=== PATIENT | male | born 1940 | race Caucasian/White ===

== ENCOUNTER → 2017-08-30 | Outpatient (CLI) | payer MEDICARE ==
[~2017-08-30] MED LIST: AMOXICILLIN500 M2; ASPIRIN CHILDRE81 M1; CRESTOR5 MG; INDOCIN50 MG; JANUVIA50 MG; LEVOTHYROXIN0.125 MG; METFORMIN HCL1000 MG; VITAMIN D50000 IU
--- NOTE | 2017-08-30 19:02 | RADIOLOGY REPORT PS360 ---
US ABD(COMPLETE-MULTI ORGANS HISTORY: NONALCOHOLIC FATTY LIVER DISEASE Patient Age: 76 years: Male Ordering Physician: BRANDEN MARTINEZ TECHNIQUE: Ultrasound abdomen complete COMPARISON : FINDINGS Pancreas. Not well seen but head body and medial tail region grossly unremarkable Liver. Slight coarse architecture slight increased echogenicity. But no focal lesions. . Portal vein is not dilated and there seems to be normal direction flow. Common duct normal diameter. Common duct normal diameter 2.5 mm at hilum of liver. Kidneys no hydronephrosis nor mass. Adequate color Doppler flow. Perhaps some minor borderline cortical thinning bilateral Right kidney normal appearance 11.2 cm length with cortex well-maintained. Left kidney 10.8 cm in length. Aorta normal caliber 1.5 cm AP x 2.2 cm transverse and tapers as it continues distal. Spleen. Upper normal./ Borderline splenomegaly. Measuring 13 cm length. IMPRESSION: 1. Slightly coarse appearance the LIVER but no focal lesions.. Portal vein with normal caliber & normal direction flow .. 2. Spleen: upper normal size/. Borderline splenomegaly. 3. Right and left kidney satisfactory. Borderline cortical thinning Aorta normal caliber
--- NOTE | 2017-08-31 12:47 | RADIOLOGY REPORT PS360 ---
ANKLE-RT-3 VIEWS, FOOT-RT-3 VIEWS HISTORY: BILAT FOOT PAIN, OA . Arthritis Patient Age: 76 years: Male Ordering Physician: BRANDEN MARTINEZ TECHNIQUE: Right ankle 3 views weightbearing Right foot 3 views weightbearing COMPARISON :Left ankle and foot from today, as well as left ankle radiograph October 2015. CT left lower leg June 2016 RIGHT ANKLE The ankle joint space is actually fairly well-maintained dome of talus appears intact. There may be some mild hypertrophy at margin of the tibia which can reflect arthritic changes Pes planus noted on lateral view. RIGHT FOOT 3 view Pes planus severe arthritic changes are most pronounced at the articulation between the navicular-intermediate cuneiforms &/navicular-lateral cuneiform.-. These changes Best seen on the oblique view . There appear to been is been wearing and bone loss at distal margin of the navicular related to these arthritic changes. And sclerosis & Subchondral cystic degree evident about these joints. (Very similar appearance was seen at the contralateral left foot on June 2016 CT lower leg) Is also arthritic changes at other tarsal joints joints for example slight narrowing between the cuboid & calcaneus suggested; and slight narrowing cuboid-fourth metatarsal base... Likely mild arthritic changes at the navicular articulation with first medial cuneiform as well. Subluxation at the second MTP joint noted with slight dorsal, medial position of the base second optimal phalanx.. Flexion deformity toes with hammertoe deformity most evident evident second toe . Mild degenerative changes first MTP joint. Bones well mineralized. IMPRESSION 1. Prominent pes planus . 2. Severe arthritic changes most evident at navicular articulation with both the intermediate cuneiform & lateral cuneiforms bones. Less pronounced arthritic changes elsewhere throughout the tarsals A mild subluxation at second MTP joint with flexion deformity/hammertoe deformity most evident second toe.
--- NOTE | 2017-08-31 13:03 | RADIOLOGY REPORT PS360 ---
ANKLE-LT-3 VIEWS, FOOT-LT-3 VIEWS HISTORY: BILAT FOOT PAIN, OA. Foot and ankle ankle pain bilateral Patient Age: 76 years: Male Ordering Physician: BRANDEN MARTINEZ TECHNIQUE: 3 views left ankle weightbearing 3 views left foot weightbearing COMPARISON :Left ankle from October [address] left lower leg due to ankle June 2016 utilized ====== Left ANKLE 3 VIEWS. Right ankle mortise intact. Dome of talus intact. Medial and posterior malleolus intact. There may be some early marginal hypertrophic changes along anterior margin of the tibia at the ankle joint which may reflect some early degenerative features. We again see phleboliths and soft tissue calcifications along the distal tibia although these are better seen on the more extensive lower leg study from the past ======== Left FOOT 3 VIEWS . Pes planus again observed Progressive and severe appearing arthritic changes at the articulations of the navicular with the cuneiform bones. The most pronounced narrowing sclerosis subchondral cystic changes are seen at the articulation between the navicular and lateral cuneiform and intermediate cuneiform. There are also arthritic changes at its articulation with the medial cuneiform more evident here on left than right. These appear similar to the previous 2016 CT perhaps incremental progression. The metatarsals appear intact. Only question some slight narrowing at the fifth metatarsal cuboid and calcaneal cuboid articulation otherwise tarsals. Flexion deformity, hammertoe deformity is seen at the second, third, fourth and to lesser degree fifth toe. Most pronounced hammertoe irregularities is seen at the fourth toe where there is question slight subluxation of PIP joint on these views. IMPRESSION: Left foot and ankle Pes planus left foot . 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
== END ==
LOC: RAD 08:21
DX: K76.0 Fatty (change of) liver, not elsewhere classified (principal); M79.672 Pain in left foot; M79.671 Pain in right foot; M19.072 Primary osteoarthritis, left ankle and foot; M19.071 Primary osteoarthritis, right ankle and foot